=== PATIENT | female | born 1980 | race Caucasian/White ===

== ENCOUNTER → 2023-03-07 10:07 | Outpatient (CLI) | payer BC, SELFPAY ==
--- NOTE | ~2023-03-07 | US_ITS ---
Pelvic ultrasound. Clinical History: Hypertrophy of uterus Technique: Realtime transabdominal and transvaginal scanning of the pelvis was performed. Color flow Doppler and Doppler spectral analysis were performed. Findings: The uterus is anteverted, and measures 14.1 x 6.6 x 7.5 cm. The endometrial stripe has a t hickness of 8 mm. There is a probable posterior intramural fibroid measuring 5.3 x 4.0 x 5.3 cm. Juan tional posterior wall fibroid measuring 6.6 x 5.7 x 6.9 cm. Additional smaller fibroids are probably present. The right ovary measures 2.9 x 1.5 x 2.8 cm. No significant right ovarian or adnexal mass is seen. The left ovary measures 2.1 x 3.1 x 2.3 cm. No significant left ovarian or adnexal mass is seen. There is no evidence of free fluid in the cul de sac. Impression: Multifibroid uterus, as detailed above. Reviewed, dictated and finalized at location M. Impression: Multifibroid uterus, as detailed above.
== END ==
PROVIDERS: PCP Obstetrics & Gynecology Gynecology; Visit Provider Obstetrics & Gynecology Gynecology
DX: N85.2 Hypertrophy of uterus (principal); D25.9 Leiomyoma of uterus, unspecified
CPT/HCPCS: 76830; 76856

== ENCOUNTER 2023-04-23 07:59 | Outpatient (CLI) | payer BC, SELFPAY ==
[2023-04-23 08:28] LABS: Anion Gap 10 mmol/L (8-16); Blood Urea Nitrogen 18 mg/dL (7-17); Calcium 8.7 mg/dL (8.4-10.2); Carbon Dioxide 26 mmol/L (22-30); Chloride 105 mmol/L (98-107); Estimated Glomerular Filt Rate > 60; Glucose 107 mg/dL (65-110); Potassium 4.6 mmol/L (3.4-5.0); Sodium 141 mmol/L (137-145)
== END 2023-04-23 08:00 | disposition home or self-care (01) ==
LOC: ANHSURGERY 08:06
PROVIDERS: Anesthesiology; PCP Family Medicine; Visit Provider Obstetrics & Gynecology Gynecology
DX: Z79.899 Other long term (current) drug therapy (principal); Z01.818 Encounter for other preprocedural examination
CPT/HCPCS: 36415; 80048

== ENCOUNTER 2023-04-28 01:02 | Day surgery (SDC) | payer BC, SELFPAY ==
[2023-04-21 10:21] VITALS: BMI 34.7
--- NOTE | 2023-04-21 10:22 | PC.NURSE ---
Report to the Outpatient Waiting Room, entrance under the green pavilion located off [facility], at time _0730_ on date _[id number]_. Planned Procedure Time: _0930_. Time changes happen often and if your time is changed the preop area will call you the afternoon before. - You and your visitor will be asked to self-screen and do not enter if you have any COVID symptoms. - A mask is optional within the hospital at this time. Patients may have clear liquids (water, carbonated beverages, clear teas, apple juice) until 3 hours prior to surgery with a maximum of 20 ounces. - No food from midnight until time of surgery Take the following medications with a SIP of water the morning of surgery: Metoprolol DO NOT STOP ANY OF YOUR OTHER PRESCRIPTION MEDICATIONS PRIOR TO SURGERY ?EXCEPT THE FOLLOWING Medications to discontinue per physician None Date to take last dose Please no make-up, nail french, hairspray, perfume, deodorant, or body powder the day of surgery. No jewelry (including any body piercings) or valuables the day of surgery, leave them at home. Please take a shower or bath the night before, or the morning of, surgery with an antibacterial soap. Wear comfortable, loose fitting clothing. - Jewelry must be removed prior to entering the operating room. Rings and piercings that are not removed may be cut off. - The hospital will not accept responsibility for valuables. - Please leave all valuables, including medications, at home the day of surgery. If you are going home after surgery, a licensed salesperson driver must drive you home. - NO public transportation without another adult if you receive anesthesia. - We recommend that an adult stay with you for 24 hours following discharge. - We also recommend that you do not drive, make important decision, drink alcoholic beverages, or take any drugs that were not prescribed by your health care provider for at least 24 hours after your discharge time. Follow any additional instructions given to you from your surgeon. If you or anyone in your household have experienced Covid symptoms in the past week, please notify your surgeon or the nurse liaison at the phone number below for possible testing. Telephone instructions given to _Patient__and asked if any additional questions and then verbalized understanding. Patient advised to call surgeon office or pre surgery nurse liaison [phone] if any additional questions.
--- NOTE | 2023-04-28 07:33 | WPDHPUPDATE1 ---
History and Physical Update Update Date/Time: 04/28/23 07:33 History and Physical has been reviewed, including an updated exam of the patient. There are NO changes in the patient's condition. Risks, benefits, and alternatives have been discussed and questions answered. Patient agrees to proceed with procedure.
--- NOTE | 2023-04-28 07:33 | PM.HPGS ---
History of Present Illness History of Present Illness Consent: Risks, benefits, and alternatives have been discussed and questions answered. Patient agrees to proceed with procedure. Chief complaint: menorrhagia Narrative: Lashonda Irving is a 42 year old female with worsening cycles over the past year. Pelvic ultrasound revealed a posterior intramural fibroid as well as a subserosal fibroid and smaller fibroids. None are specifically listed as submucosal. It was recommended to proceed with D&C hysteroscopy and possible myomectomy. Risks of infection, bleeding, perforation, and fluid imbalance are reviewed. The possible pathology was discussed. Patient voices understanding and agrees to proceed. Review of Systems Review of Systems: not repeated day of surgery; patient states no changes in status PMFSH Past Medical History Medical History (Updated 04/28/23 @ 07:37 by Alicia Ramos MD) HTN (hypertension) Surgical History Surgical History (Updated 04/28/23 @ 07:35 by Alicia Ramos MD) History of foot surgery 2000 and 2001 Family History Family History Mother Family history of obesity Grandparent Family history of chronic obstructive pulmonary disease Family history of lung cancer Family history of congestive heart failure Diabetes mellitus Mother Hypertension Grandparent Family history of malignant neoplasm of brain Diabetes mellitus Social History Social History Smoking status: Never smoker Alcohol intake: current Drinks per week: 4 Substance use: never Substance use type: does not use Living arrangements: with family Occupation/Education: occupation Spiritual care concerns: No Meds Home Medications and Allergies Home Medications Medication Instructions Recorded Confirmed Type benazepril 20 1 tablet PO DAILY #90 tabs 08/15/22 04/21/23 Rx mg-hydrochlorothiazide 12.5 mg tablet metoprolol succinate 50 mg 50 mg PO DAILY #90 ea 08/15/22 04/21/23 Rx tablet,extended release 24 hr Allergies Allergy/AdvReac Type Severity Reaction Status Date / Time No Known Allergies Allergy Verified 04/21/23 10:15 Exam Narrative: BMI is 35.5 Const: General: healthy appearing and alert Orientation/consciousness: patient oriented x3 Resp: Effort & Inspection: normal respiratory effort GI: GI Palp: Yes Soft to palpation, No Tenderness to palpation present (GI) and No Palpable mass present : External Female Exam: normal external appearance Speculum Exam - Vagina: normal appearance of the vagina and normal vaginal discharge Speculum Exam - Cervix: normal appearance of the cervix Bimanual exam- vagina & uterus: consistency normal and enlarged (Approximately 15 week size) Bimanual Exam- Adnexa, other: normal adnexae and No adnexal tenderness Neuro: General: patient oriented x3 Assessment and Plan Assessment and plan (1) Menorrhagia: Code(s): N92.0 - Excessive and frequent menstruation with regular cycle Status: Acute Assessment and Plan: Plan to proceed with D&C hysteroscopy with possible myomectomy (2) Fibroid uterus: Code(s): D25.9 - Leiomyoma of uterus, unspecified Status: Acute
[2023-04-28 09:00] VITALS: BP 147/84; PULSE 99; RESP 18; TEMP 36.7; O2SAT 100
[2023-04-28] MEDS: LACTATED RINGERS 1,000 ML 30 ML IV CONT (09:00)
[2023-04-28] MEDS: ACETAMINOPHEN 500 MG TABLET 1000 MG PO (09:30)
--- NOTE | 2023-04-28 09:36 | WPDANESEPPF ---
Anes - Initial Pre Proc Eval Procedure: Operation Date: 04/28/23 10:30 Proposed Procedures p Hysteroscopy Dilation and Curettage - Alicia Ramos MD Date/Time: 04/28/23 09:36 Surgeon: Alicia Ramos MD Pre Op Diagnosis: menorrhagia Patient Data Age: 42 Gender: F Height: 1.78 m Weight: 110 kg Allergies Allergy/AdvReac Type Severity Reaction Status Date / Time No Known Allergies Allergy Verified 04/21/23 10:15 Home Medications Medication Instructions Recorded Confirmed Type benazepril 20 1 tablet PO DAILY #90 tabs 08/15/22 04/21/23 Rx mg-hydrochlorothiazide 12.5 mg tablet metoprolol succinate 50 mg 50 mg PO DAILY #90 ea 08/15/22 04/21/23 Rx tablet,extended release 24 hr Patient hx anesthesia problems: none Family hx anesthesia problems: none Results Review: All pre-operative results and documents have been reviewed as part of the pre-operative evaluation. [facility] Past Medical History Medical History HTN (hypertension) Surgical History Surgical History History of foot surgery 2000 and 2001 Family History Family History Mother Family history of obesity Grandparent Family history of chronic obstructive pulmonary disease Family history of lung cancer Family history of congestive heart failure Diabetes mellitus Mother Hypertension Grandparent Family history of malignant neoplasm of brain Diabetes mellitus Social History Social History Smoking status: Never smoker Alcohol intake: current Drinks per week: 4 Substance use: never Substance use type: does not use Living arrangements: with family Occupation/Education: occupation Spiritual care concerns: No Anes - Eval Final PreProcedure Day of Procedure 04/28/23 09:36 Patient weight: obese Heart: regular rate and rhythm Lungs: clear to auscultation Airway: Mallampati scale class II Neurological: alert and oriented Last oral intake: >/= 8 hours ASA classification: II Emergent: no Anesthetic plan: proceed Anesthesia type and monitoring: general GIVS and standard monitoring Results Review: All pre-operative results and documents have been reviewed as part of the pre-operative evaluation. Informed Consent: The patient's anesthetic plan and its attendant risks and benefits were discussed with the patient/family/POA. Questions were solicited and answers provided to the satisfaction of the patient/family/POA.
[2023-04-28] MEDS: KETOROLAC 30 MG/ML VIAL (*BKC) IV PUSH (10:43)
[2023-04-28 10:45] VITALS: BP 115/71; PULSE 77; RESP 16; O2SAT 95
--- NOTE | 2023-04-28 10:47 | W.PM.PROC2 ---
Procedure Note - Detailed Date of Procedure 04/28/23 Pre-op Diagnosis menorrhagia Post-op Diagnosis Same Procedure Performed D&C hysteroscopy Surgeon Alicia Ramos MD Anesthesia MAC Findings Uterus sounds to 12cm. There is sessile fibroid arising from the posterior filling the majority of the cavity. The remainder of the endometrium appears atrophic. Description of Procedure The patient is taken to the operating room and placed under anesthesia in the dorsal lithotomy position. She was prepped and draped in usual sterile fashion. [place] speculum was placed in the vagina and the cervix grasped on the anterior lip with a tenaculum. The uterine sound is unable to pass therefore the small Hegar dilators used and is able to enter the cavity. The cervix is dilated to a 4 Hegar. The uterine sound then placed and the uterus sounded to 12cm. The hysteroscope was placed and with the above-stated findings the medium resection device is opened and placed. Upon starting with resection of the right upper portion of the fibroid, there is intermediate fluid deficit of 300cc. Visualization went to minimal. While troubleshooting the total fluid deficit went to of 750cc. The hysteroscope was removed. The sound is replaced and no perforation is detected. It is assumed that the fluid is resorbed through the fibroid vasculature. The sharp curette is used to curette the endometrium. All instruments are removed. The patient was awakened from anesthesia and taken to recovery in stable condition. Estimated Blood Loss 5 Drains No Packing No Pathology Yes (Endometrial shavings and curettings) Complications No immediate complications Condition Stable Disposition PACU
[2023-04-28 11:15] VITALS: BP 117/67; PULSE 55
== END 2023-04-28 11:35 | disposition home or self-care (01) ==
PROVIDERS: PCP Family Medicine; Visit Provider Obstetrics & Gynecology Gynecology
PROC: 0U5B8ZZ Destruction of Endometrium, Via Natural or Artificial Opening Endoscopic (ICD-10-PCS; CPT 58563; principal; 2023-04-28 10:30)
DX: N92.0 Excessive and frequent menstruation with regular cycle (principal); D25.9 Leiomyoma of uterus, unspecified; I10 Essential (primary) hypertension; E66.9 Obesity, unspecified; Z68.34 Body mass index [BMI] 34.0-34.9, adult
CPT/HCPCS: 58558; 36415; 80048; 88305; A9270; J1100; J1885; J2250; J2405; J2704; J3010; J7120

== ENCOUNTER → 2023-05-13 10:29 | Outpatient (CLI) | payer BC, SELFPAY ==
--- NOTE | ~2023-05-13 | MM_ITS ---
EXAMINATION: MM screening sam BI w samantha HISTORY: Screening TECHNIQUE: Craniocaudal and mediolateral oblique 3-D tomosynthesis images were obtained and synthetic 2-D images were generated. CAD analysis was submitted and interpreted. COMPARISON: No prior mammogram is available for comparison at this institution. BREAST PARENCHYMAL COMPOSITION: There are scattered areas of fibroglandular density. FINDINGS: There is no evidence of suspicious mass, calcification, or architectural distortion to sugg est malignancy in either breast. There has been no suspicious interval change. IMPRESSION: 1. No mammographic evidence of malignancy. 2. Recommend routine screening mammography in one year. BI-RADS Category 1: Negative Reviewed, dictated and finalized at location A.
== END ==
PROVIDERS: PCP Family Medicine; Visit Provider Advanced Practice Midwife
DX: Z12.31 Encounter for screening mammogram for malignant neoplasm of breast (principal)
CPT/HCPCS: 77063; 77067

== ENCOUNTER 2023-05-16 08:22 | Outpatient (CLI) | payer BC, SELFPAY ==
--- NOTE | 2023-05-16 08:43 | ECG_ITS ---
Measurements Intervals [place] Rate: 93 P: -12 UT: 157 QRS: 24 QRSD: 94 T: 0 QT: 356 QTc: 443 Interpretive Statements SINUS RHYTHM NO PREVIOUS ECG AVAILABLE FOR COMPARISON Electronically Signed On 05-16-2023 13:34:35 CDT by Gorge Peralta MD
[2023-05-16 09:01] LABS: Hematocrit 31.2 % (37.0-47.0); Hemoglobin 8.9 g/dL (12.0-15.0)
== END 2023-05-16 08:23 | disposition home or self-care (01) ==
LOC: ANHSURGERY 08:25
PROVIDERS: PCP Family Medicine; Visit Provider Obstetrics & Gynecology Gynecology
DX: Z01.818 Encounter for other preprocedural examination (principal); I10 Essential (primary) hypertension; N92.0 Excessive and frequent menstruation with regular cycle
CPT/HCPCS: 36415; 85014; 85018; 86850; 86900; 86901; 93005

== ENCOUNTER 2023-05-26 10:20 | Inpatient (IN) | payer BC, SELFPAY ==
[2023-05-14 13:11] VITALS: BMI 34.7
--- NOTE | 2023-05-14 13:13 | PC.NURSE ---
Report to the Outpatient Waiting Room, entrance under the green pavilion located off [facility], at time 7:30 on date 05/26/23. Planned Procedure Time: 9:30. Time changes happen often and if your time is changed the preop area will call you the afternoon before. - You and your visitor will be asked to self-screen and do not enter if you have any COVID symptoms. - A mask is optional within the hospital at this time. Patients may have clear liquids (water, carbonated beverages, clear teas, apple juice) until 3 hours prior to surgery (6:30) with a maximum of 20 ounces. - No food from midnight until time of surgery Take the following medications with a SIP of water the morning of surgery: METOPROLOL DO NOT STOP ANY OF YOUR OTHER PRESCRIPTION MEDICATIONS PRIOR TO SURGERY ?EXCEPT THE FOLLOWING Medications to discontinue per physician: N/A Date to take last dose: N/A Please no make-up, nail honduran, hairspray, perfume, deodorant, or body powder the day of surgery. No jewelry (including any body piercings) or valuables the day of surgery, leave them at home. Please take a shower or bath the night before, or the morning of, surgery with an antibacterial soap. Wear comfortable, loose fitting clothing. - Jewelry must be removed prior to entering the operating room. Rings and piercings that are not removed may be cut off. - The hospital will not accept responsibility for valuables. - Please leave all valuables, including medications, at home the day of surgery. If you are going home after surgery, a licensed customer service driver must drive you home. - NO public transportation without another adult if you receive anesthesia. - We recommend that an adult stay with you for 24 hours following discharge. - We also recommend that you do not drive, make important decision, drink alcoholic beverages, or take any drugs that were not prescribed by your health care provider for at least 24 hours after your discharge time. Follow any additional instructions given to you from your surgeon. If you or anyone in your household have experienced Covid symptoms in the past week, please notify your surgeon or the nurse liaison at the phone number below for possible testing. Telephone instructions given to PT - SURYA HAYWARD and asked if any additional questions and then verbalized understanding. Patient advised to call surgeon office or pre surgery nurse liaison [phone] if any additional questions.
[2023-05-26] VITALS (20 sets, daily range): BP systolic 108–133; BP diastolic 58–85; PULSE 64–89; RESP 10–20; TEMP 36.1–37.3; O2SAT 94–100
[2023-05-26] MEDS: ACETAMINOPHEN 500 MG TABLET 1000 MG PO (06:38)
[2023-05-26] MEDS: LACTATED RINGERS 1,000 ML 30 ML IV CONT ×2 (06:50→09:17)
--- NOTE | 2023-05-26 06:52 | P.PNAN_ITS ---
Anes - Initial Pre Proc Eval Procedure: Operation Date: 05/26/23 07:30 Proposed Procedures p Total Abdominal Hysterectomy with Bilateral Salpingectomy - Alicia Ramos MD Date/Time: 05/26/23 06:52 Surgeon: Alicia Ramos MD Pre Op Diagnosis: menorrhagia, fibroids Patient Data Age: 42 Gender: F Height: 1.78 m Weight: 109.7 kg Allergies Allergy/AdvReac Type Severity Reaction Status Date / Time No Known Allergies Allergy Verified 05/26/23 06:36 Home Medications Medication Instructions Recorded Confirmed Type benazepril 20 1 tablet PO DAILY #90 tabs 05/11/23 05/26/23 Rx mg-hydrochlorothiazide 12.5 mg tablet metoprolol succinate 50 mg 50 mg PO DAILY #90 ea 05/11/23 05/26/23 Rx tablet,extended release 24 hr Patient hx anesthesia problems: none Family hx anesthesia problems: none Results Review: All pre-operative results and documents have been reviewed as part of the pre- operative evaluation. [facility] Past Medical History Medical History HTN (hypertension) Surgical History Surgical History History of foot surgery 2000 and 2001 Family History Family History Mother Family history of obesity Grandparent Family history of chronic obstructive pulmonary disease Family history of lung cancer Family history of congestive heart failure Diabetes mellitus Mother Hypertension Grandparent Family history of malignant neoplasm of brain Diabetes mellitus Social History Social History Smoking status: Never smoker Alcohol intake: current Drinks per week: 4 Substance use: never Substance use type: does not use Living arrangements: with family Occupation/Education: occupation Spiritual care concerns: No Anes - Eval Final PreProcedure Day of Procedure 05/26/23 06:52 Patient weight: obese Heart: regular rate and rhythm Lungs: clear to auscultation Airway: Mallampati scale class II Neurological: alert and oriented Last oral intake: >/= 8 hours ASA classification: II Emergent: no Anesthetic plan: proceed Anesthesia type and monitoring: general ETT and standard monitoring Results Review: All pre-operative results and documents have been reviewed as part of the pre- operative evaluation. Informed Consent: The patient's anesthetic plan and its attendant risks and benefits were discussed with the patient/family/POA. Questions were solicited and answers provided to the satisfaction of the patient/family/POA.
[2023-05-26] MEDS: KETOROLAC 15 MG/ML VIAL (*BKC) IV PUSH (07:00)
--- NOTE | 2023-05-26 07:05 | WPDHPUPDATE1 ---
History and Physical Update Update Date/Time: 05/26/23 07:05 History and Physical has been reviewed, including an updated exam of the patient. There are NO changes in the patient's condition. Risks, benefits, and alternatives have been discussed and questions answered. Patient agrees to proceed with procedure.
--- NOTE | 2023-05-26 07:05 | PM.IMHP ---
H&P: HPI History of Present Illness Date/Time: 05/26/23 07:05 Chief Complaint: Menorrhagia and enlarged fibroid uterus Narrative: The patient is a 42-year-old with worsening heavy cycles. Patient underwent D&C hysteroscopy and there is a large sessile fibroid filling the majority of the cavity. Uterus is enlarged with multiple fibroids. Patient has elected to proceed with total abdominal hysterectomy as well as bilateral salpingectomy. Risks of infection, bleeding, injury to internal organs (bowel, bladder, ureters, ovaries), DVT, and general anesthesia are reviewed. Patient voices understanding and agrees to proceed. Review of Systems Review of Systems: not repeated day of surgery; patient states no changes in status PMFSH Past Medical History Medical History HTN (hypertension) Surgical History Surgical History (Updated 05/26/23 @ 07:08 by Alicia Ramos MD) History of foot surgery 2000 and 2001 History of hysteroscopy Family History Family History Mother Family history of obesity Grandparent Family history of chronic obstructive pulmonary disease Family history of lung cancer Family history of congestive heart failure Diabetes mellitus Mother Hypertension Grandparent Family history of malignant neoplasm of brain Diabetes mellitus Social History Social History Smoking status: Never smoker Alcohol intake: current Drinks per week: 4 Substance use: never Substance use type: does not use Living arrangements: with family Occupation/Education: occupation Spiritual care concerns: No Meds Home Medications and Allergies Home Medications Medication Instructions Recorded Confirmed Type benazepril 20 1 tablet PO DAILY #90 tabs 05/11/23 05/26/23 Rx mg-hydrochlorothiazide 12.5 mg tablet metoprolol succinate 50 mg 50 mg PO DAILY #90 ea 05/11/23 05/26/23 Rx tablet,extended release 24 hr Allergies Allergy/AdvReac Type Severity Reaction Status Date / Time No Known Allergies Allergy Verified 05/26/23 06:36 Exam Const: General: healthy appearing and alert Orientation/consciousness: patient oriented x3 Resp: Effort & Inspection: normal respiratory effort GI: GI Palp: Yes Soft to palpation, No Tenderness to palpation present (GI) and No Palpable mass present : External Female Exam: normal external appearance Speculum Exam - Vagina: normal appearance of the vagina and normal vaginal discharge Speculum Exam - Cervix: normal appearance of the cervix Bimanual exam- vagina & uterus: enlarged (Approximately 15 week size) Bimanual Exam- Adnexa, other: normal adnexae and No adnexal tenderness Neuro: General: patient oriented x3 Assessment and Plan Assessment and plan (1) Fibroid uterus: Code(s): D25.9 - Leiomyoma of uterus, unspecified Status: Acute (2) Menorrhagia: Code(s): N92.0 - Excessive and frequent menstruation with regular cycle Status: Acute Assessment and Plan: Plan to proceed with total abdominal hysterectomy and bilateral salpingectomy
[2023-05-26] MEDS: ceFAZolin 2 GM/D5W 50 ML 2 GM/50 ML BAG IVPB (07:22)
--- NOTE | 2023-05-26 09:05 | P.OP_ITS ---
Procedure Note - Detailed Date of Procedure 05/26/23 Pre-op Diagnosis menorrhagia, fibroids Post-op Diagnosis Same Procedure Performed Total abdominal hysterectomy with right salpingectomy Surgeon Alicia Ramos MD Anesthesia General Findings Enlarged fibroid uterus, normal-appearing ovaries, left tube appears normal, right tube is scarred down to the pelvic sidewall Description of Procedure The patient is taken to the operating room and placed under anesthesia in the dorsal supine position. She was prepped and draped in the usual sterile fashion. Abdominal exam was performed and decision was made to proceed with a Pfannenstiel skin incision which was made with the scalpel. The incision was carried down to the fascia which was nicked in the midline and extended laterally using Ashton scissors. Bleeding vessels in the subcutaneous tissue are cauterized for hemostasis. The [facility] was used to tent the fascia which was then dissected off using sharp and blunt dissection. The rectus muscles were in the midline and the peritoneum tented entered with Metzenbaum scissors. The incision was extended with blunt traction. The bowel was packed away using moist laparotomy sponges and the [place] retractor was placed. The uterus is grasped on the cornu with large peans. The round ligaments were doubly ligated with 0 Vicryl, transected, and the anterior leaf of the broad ligament incised meeting in the midline. The bladder was dissected off the lower uterine segment and cervix with a moist sponge stick bluntly. The window was created in the posterior leaf of the broad ligament and the utero-ovarian ligament is doubly clamped with minimally curved Z clamps, transected, and suture ligated with 0 Vicryl on each side. The uterine vessels are skeletonized, doubly clamped with minimally curved Z clamps, transected, and suture ligated with 0 Vicryl. The cardinal and uterosacral ligaments are serially clamped, transected, and suture ligated with 0 Vicryl. The uterosacral ligaments are tagged for future use. A scalpel was used to enter the vaginal cuff anteriorly. The vaginal cuff was grasped with long Allis clamps and the specimen amputated using Jame scissors. The vaginal cuff was closed using 0 Vicryl in a running locked fashion tying each angle to the ipsilateral uterosacral ligaments. The posterior peritoneum dehisced from the cuff therefore it was closed and brought up to the vaginal cuff using a running stitch of 0 Vicryl. The pelvis was irrigated and noted to be hemostatic. The right tube is grasped with a Rene, crossclamped with a minimally curved Z clamp, excised, and suture ligated with 0 Vicryl. The left tube is noted to be very adherent to the left pelvic sidewall and deep under scar tissue therefore it was left in place. The pelvis was again irrigated and noted to be hemostatic. All tags were cut out. Sponges and instruments are removed. The fascia was closed using 0 Vicryl in a running fashion. Subcutaneous tissues are irrigated and made hemostatic using Bovie cautery. Skin incision was closed using 4-0 Vicryl in a subcuticular fashion. Dermaflex was placed over the incision. Once the Dermaflex is dry the Mepilex dressing is placed. Sponge, needle, and instrument counts are correct per the OR staff. Layne catheter has no blood noted. The patient is awakened from anesthesia and taken to recovery in stable condition. Estimated Blood Loss 125 Drains Yes (Layne catheter) Packing No Pathology Yes (Uterus and right tube) Complications No immediate complications Condition Stable Disposition PACU
--- NOTE | 2023-05-26 09:11 | PM.DS ---
DS: Admitting Diagnosis Discharge Date 05/28/23 Admitting Diagnosis Menorrhagia with fibroid uterus DS: Discharge Diagnosis Discharge Diagnosis (1) Status post total abdominal hysterectomy: Code(s): Z90.710 - Acquired absence of both cervix and uterus Status: Acute DS: Summary Hospital Course Hospital Course: The patient is tolerating a regular diet, voiding, and ambulating at the time of discharge. Status at Discharge Functional status at discharge: independent ambulation Overall status at discharge: patient is progressing back to baseline Time Spent with Patient Time attestation: Total time spent providing and/or coordinating discharge services: Time spent: Less than 30 minutes DS: Data Data Completed and Pending Pending studies at discharge: Pending at discharge 05/26/23 08:35 Surgical [PTH] Routine Surgical [PTH] Routine Discharge Plan Discharge Attending physician on discharge: Alicia Ramos Discharging Clinician: Alicia Ramos Anticipated Discharge Date/Time: 05/28/23 07:31 Patient Disposition: Home, Self-Care Activity: may shower, may drive after 2 weeks and pelvic rest Diet: regular Wound Care Instructions: keep dressing dry Stand Alone Forms: General Discharge Instructions Follow-up/Referrals: Alicia Ramos MD [Physician] - 1 Week (and 6 wk) Discharge Medications: New hydrocodone-acetaminophen 5-325 mg tablet 1 tablet PO Q4H PRN (Reason: pain) Qty: 10 0RF Continued benazepril-hydrochlorothiazide 20-12.5 mg tablet 1 tablet PO DAILY Qty: 90 1RF metoprolol succinate 50 mg tablet extended release 24 hr 50 mg PO DAILY Qty: 90 1RF Date of admission: 05/26/23 10:20 Primary Care Provider: Bib Shelley Admitting Provider: Alicia Ramos Attending physician on admission: Alicia Ramos Condition: Stable
[2023-05-26] MEDS: fentaNYL CITRATE INJ (*CRX) 100 MCG/2 ML VIAL 25 MCG IV PUSH ×3 (09:34→10:02)
[2023-05-26] MEDS: KETOROLAC 30 MG/ML VIAL (*BKC) IV PUSH (10:56)
[2023-05-26] MEDS: DEXTROSE 5%/LACTATED RINGERS 1,000 ML 125 ML IV CONT ×3 (10:56→23:11)
--- NOTE | 2023-05-26 11:10 | ADMGEN ---
1027-This patient, Lashonda Irving, was admitted to OB 2nd Floor Room 289-00. Patient/family oriented to hospital policies and general routines including ID bracelet, bed and alarms, visiting hours, pain management, procedures, bathroom and other care routines, personal items, smoking policy, room service/diet, and visiting hours. Information on how to activate the Rapid Response Team has been discussed. Patient/Family are encouraged to report perceived risks to care and to ask questions if they do not understand what they are told or what they should do.
[2023-05-26] MEDS: FENTANYL 600MCG/NS30MLPCA(*CRX 600 MCG/30 ML PCA.VIAL IV CONT (12:22)
[2023-05-27] VITALS (7 sets, daily range): BP systolic 109–125; BP diastolic 55–62; PULSE 70–82; RESP 16–18; TEMP 36.2–37.1; O2SAT 98
[2023-05-27] MEDS: KETOROLAC 30 MG/ML VIAL (*BKC) IV PUSH (04:39)
[2023-05-27] MEDS: HYDROcodone/acetaminophen (*CRX) 10-325 MG TABLET 1 TAB PO ×3 (04:40→11:42)
[2023-05-27] MEDS: SIMETHICONE 80 MG TAB.CHEW PO ×5 (04:40→17:45)
[2023-05-27 05:05] LABS: Basophils Percent Auto 0.2 % (0.2-1.2); Hematocrit 25.3 % (37.0-47.0); Hemoglobin 7.2 g/dL (12.0-15.0); Immature Granulocyte Absolute 0.06 K/mm3 (0.00-0.031); Immature Granulocyte Percent A 0.5 % (0-0.5); Lymphocytes Absolute Auto 1.49 K/mm3 (0.9-3.2); Lymphocytes Percent Auto 12.2 % (18.3-44.2); Mean Corpuscular HGB Conc 28.5 g/dl (32-36); Mean Corpuscular Hemoglobin 19.8 pg (26-34); Mean Corpuscular Volume 69.7 fl (80-100); Mean Platelet Volume 9.5 fl (7.4-10.4); Monocytes Percent Auto 8.1 % (2.6-8.5); Neutrophils Absolute Auto 9.6 K/mm3 (1.3-6.7); Platelet Count Result 354 k/mm3 (150-375); Red Blood Count 3.63 M/mm3 (4.2-5.4); Red Cell Distribution Width 19.3 % (11.5-14.5); White Blood Count 12.2 K/mm3 (4.5-10.0)
[2023-05-27 05:56] LABS: Platelet Estimate Adequate (Adequate)
[2023-05-27 05:57] LABS: Anisocytosis 2+ (NORMAL); Hypochromasia 2+ (NORMAL); Microcytosis 2+ (NORMAL); Schistocytes None Seen (NORMAL)
--- NOTE | 2023-05-27 07:51 | PM.GYNPNOP ---
BELLSTAFF - A/P Postoperative Procedures: Procedures Operation Date: 05/26/23 07:30 Actual Procedure Side Surgeon p Total Abdominal Hysterectomy with Right Salpingectomy Right Alicia Ramos MD Postoperative day: 1 Postoperative status: doing well Postoperative plan: routine post-op care Time Spent With Patient Time: Total time spent is greater than 50% in coordination of care (as documented) at patient's floor/unit and/or counseling patient: Time with patient: less than 15 minutes BELLSTAFF- PN:Subj Post-Op Subjective Date/time seen: 05/27/23 07:51 Subjective: patient reports feeling better, patient has no complaints and pain is well controlled Exam Narrative: bandage intact abdomen soft, nt BELLSTAFF - PN: Obj Data Vital Signs Vital Signs: Vital Signs - 24 hr 05/26/23 09:17 05/26/23 09:30 05/26/23 09:45 Temperature 97.2 F L Pulse Rate 79 64 67 Respiratory Rate 10 L 18 16 Blood Pressure 108/68 111/70 114/71 Pulse Oximetry 100 100 100 Oxygen Delivery Simple Face Mask Simple Face Mask Simple Face Mask Oxygen Flow Rate 6 6 6 05/26/23 09:50 05/26/23 10:00 05/26/23 10:15 Temperature 96.9 F L Pulse Rate 71 66 Respiratory Rate 16 16 Blood Pressure 122/71 114/72 Pulse Oximetry 97 94 Oxygen Delivery Room Air Room Air Room Air Oxygen Flow Rate 05/26/23 11:00 05/26/23 12:22 05/26/23 10:35 Temperature 97.6 F Pulse Rate 66 73 Respiratory Rate 16 16 16 Blood Pressure 120/66 Pulse Oximetry 94 97 97 Oxygen Delivery Room Air Oxygen Flow Rate 05/26/23 13:22 05/26/23 14:22 05/26/23 15:14 Temperature 98.6 F Pulse Rate 73 Respiratory Rate 16 16 16 Blood Pressure 128/68 Pulse Oximetry 97 98 98 Oxygen Delivery Oxygen Flow Rate 05/26/23 15:00 05/26/23 15:22 05/26/23 19:15 Temperature 98 F Pulse Rate 73 81 Respiratory Rate 16 16 16 Blood Pressure 113/58 L Pulse Oximetry 98 98 98 Oxygen Delivery Room Air Oxygen Flow Rate 05/26/23 19:15 05/26/23 21:18 05/26/23 21:21 Temperature 98 F Pulse Rate 81 Respiratory Rate 16 18 18 Blood Pressure 122/62 Pulse Oximetry 98 97 97 Oxygen Delivery Oxygen Flow Rate 05/26/23 23:20 05/26/23 23:31 05/26/23 23:31 Temperature 99.1 F Pulse Rate 89 89 Respiratory Rate 18 18 18 Blood Pressure 124/68 Pulse Oximetry 98 98 98 Oxygen Delivery Room Air Oxygen Flow Rate 05/27/23 01:05 05/27/23 03:21 05/27/23 03:23 Temperature 98.8 F Pulse Rate 78 Respiratory Rate 18 18 18 Blood Pressure 125/62 Pulse Oximetry 98 98 98 Oxygen Delivery Oxygen Flow Rate 05/27/23 03:23 05/27/23 04:30 05/27/23 07:00 Temperature Pulse Rate 78 Respiratory Rate 18 18 Blood Pressure Pulse Oximetry 98 98 Oxygen Delivery Room Air Room Air Oxygen Flow Rate 05/26/23 10:27 Temperature 96.9 F L Pulse Rate 66 Respiratory Rate Blood Pressure 114/72 Pulse Oximetry 94 Oxygen Delivery Oxygen Flow Rate Intake/Output Intake/Output: Intake & Output 05/24/23 05/25/23 05/26/23 05/27/23 23:59 23:59 23:59 23:59 Intake Total 4203.5 2339 Output Total 505 3500 Balance 3698.5 -1161 Meds/Results Medications: Active Medications Generic Name Dose Route Start Last Admin Trade Name Freq PRN Reason Stop Dose Admin Hydrocodone Bitart/Acetaminophen 1 tab 05/26/23 10:20 05/27/23 04:40 Hydrocodone/Acetaminophen (*Crx) 10-325 Mg Tablet PO 1 tab Q3H PRN Administration Pain Rated 6 or Greater Hydrocodone Bitart/Acetaminophen 1 tab 05/26/23 10:20 Hydrocodone/Acetaminophen (*Crx) 5-325 Mg Tablet PO Q3H PRN Pain Rated 5 or Less Hydrochlorothiazide 12.5 mg 05/27/23 09:00 Hydrochlorothiazide 12.5 Mg Capsule PO QAM NATALIE Dextrose/Lactated Ringer's 1,000 mls @ 125 mls/hr 05/26/23 10:20 05/27/23 04:30 Dextrose 5%/Lactated Ringers IV CONT 0 mls/hr .Q8H NATALIE Infusion Ibuprofen 600 mg 05/26/23 10:20 Ibuprofen 600 Mg Tabl
[2023-05-27] MEDS: METOPROLOL SUCCINATE EXT REL 50 MG TABCR PO (08:20)
[2023-05-27] MEDS: lisinopriL 20 MG TABLET PO (08:21)
[2023-05-27] MEDS: hydroCHLOROthiazide 12.5 MG CAPSULE PO (08:21)
[2023-05-27] MEDS: IBUPROFEN 600 MG TABLET PO ×2 (11:43→17:45)
[2023-05-27] MEDS: HYDROcodone/acetaminophen (*CRX) 5-325 MG TABLET 1 TAB PO ×2 (14:44→17:45)
[2023-05-28] MEDS: HYDROcodone/acetaminophen (*CRX) 5-325 MG TABLET 1 TAB PO ×2 (05:40→08:58)
[2023-05-28] MEDS: SIMETHICONE 80 MG TAB.CHEW PO ×2 (05:40→08:58)
[2023-05-28] MEDS: IBUPROFEN 600 MG TABLET PO (05:40)
--- NOTE | 2023-05-28 07:28 | PM.GYNPNOP ---
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 - A/P Postoperative Procedures: Procedures Operation Date: 05/26/23 07:30 Actual Procedure Side Surgeon p Total Abdominal Hysterectomy with Right Salpingectomy Right Alicia Ramos MD Postoperative day: 2 Postoperative status: doing well Postoperative plan: routine post-op care and discharge Time Spent With Patient Time: Total time spent is greater than 50% in coordination of care (as documented) at patient's floor/unit and/or counseling patient: Time with patient: less than 15 minutes 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- PN:Subj Post-Op Subjective Date/time seen: 05/28/23 07:28 Subjective: patient has no complaints and pain is well controlled (no pain meds needed overnight) Exam Narrative: inc c/d/i abdomen soft, nt 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 - PN: Obj Data Vital Signs Vital Signs: Vital Signs - 24 hr 05/27/23 08:20 05/27/23 08:10 05/27/23 19:45 Temperature 98.4 F 97.1 F L Pulse Rate 70 70 82 Respiratory Rate 16 16 Blood Pressure 122/59 L 109/55 L Pulse Oximetry 98 Intake/Output Intake/Output: Intake & Output 05/25/23 05/26/23 05/27/23 05/28/23 23:59 23:59 23:59 23:59 Intake Total 4203.5 2339 Output Total 505 3950 Balance 3698.5 -1611 Meds/Results Medications: Active Medications Generic Name Dose Route Start Last Admin Trade Name Freq PRN Reason Stop Dose Admin Hydrocodone Bitart/Acetaminophen 1 tab 05/26/23 10:20 05/27/23 11:42 Hydrocodone/Acetaminophen (*Crx) 10-325 Mg Tablet PO 1 tab Q3H PRN Administration Pain Rated 6 or Greater Hydrocodone Bitart/Acetaminophen 1 tab 05/26/23 10:20 05/28/23 05:40 Hydrocodone/Acetaminophen (*Crx) 5-325 Mg Tablet PO 1 tab Q3H PRN Administration Pain Rated 5 or Less Hydrochlorothiazide 12.5 mg 05/27/23 09:00 05/27/23 08:21 Hydrochlorothiazide 12.5 Mg Capsule PO 12.5 mg QAM NATALIE Administration Ibuprofen 600 mg 05/26/23 10:20 05/28/23 05:40 Ibuprofen 600 Mg Tablet PO 600 mg Q6H PRN Administration Cramping Ketorolac Tromethamine 30 mg 05/26/23 10:20 05/27/23 04:39 Ketorolac 30 Mg/Ml Vial (*Bk) IV PUSH 05/31/23 10:19 30 mg Q6H PRN Administration Pain Rated 4-6 Lisinopril 20 mg 05/27/23 09:00 05/27/23 08:21 Lisinopril 20 Mg Tablet PO 20 mg QAM NATALIE Administration Metoprolol Succinate 50 mg 05/27/23 09:00 05/27/23 08:20 Metoprolol Succinate Ext Rel 50 Mg Tabcr PO 50 mg DAILY NATALIE Administration Naloxone HCl 0.1 mg 05/26/23 10:20 Naloxone Hcl 0.4 Mg/Ml Vial IV PUSH Q2M PRN Respiratory rate less than 10 Ondansetron HCl 4 mg 05/26/23 10:20 Ondansetron Inj 4 Mg/2 Ml Vial IV PUSH Q6H PRN Nausea Simethicone 80 mg 05/26/23 10:20 05/28/23 05:40 Simethicone 80 Mg Tab.Chew PO 80 mg Q2H PRN Administration Gas Labs 05/27/23 04:47
[2023-05-28 08:55] VITALS: BP 123/78; PULSE 80; RESP 16; TEMP 36.7; O2SAT 99
[2023-05-28 08:58] VITALS: PULSE 80
[2023-05-28] MEDS: hydroCHLOROthiazide 12.5 MG CAPSULE PO (08:58)
[2023-05-28] MEDS: lisinopriL 20 MG TABLET PO (08:58)
[2023-05-28] MEDS: METOPROLOL SUCCINATE EXT REL 50 MG TABCR PO (08:58)
== END 2023-05-28 10:11 | disposition home or self-care (01) | DRG 743 ==
LOC: ANHOB2 10:25
PROVIDERS: Admitting Provider Obstetrics & Gynecology Gynecology; PCP Family Medicine; Visit Provider Obstetrics & Gynecology Gynecology
PROC: 0UT94ZZ Resection of Uterus, Percutaneous Endoscopic Approach (ICD-10-PCS; principal; 2023-05-26 07:30)
DX: D25.9 Leiomyoma of uterus, unspecified (principal); N92.0 Excessive and frequent menstruation with regular cycle; I10 Essential (primary) hypertension
CPT/HCPCS: 36415; 85014; 85018; 85025; 86850; 86900; 86901; 88307; 93005; A9270; J0690; J1100; J1170; J1885; J2250; J2405; J2704; J3010; J7120; J7121

== ENCOUNTER 2024-05-24 12:07 | Outpatient (CLI) | payer BC, SELFPAY ==
--- NOTE | ~2024-05-24 | MM_ITS ---
EXAMINATION: MM screening sam BI w samantha HISTORY: Screening mammogram TECHNIQUE: Craniocaudal and mediolateral oblique 3-D tomosynthesis images were obtained and synthetic 2-D images were generated. CAD analysis was submitted and interpreted. COMPARISON: 05/13/2023 BREAST PARENCHYMAL COMPOSITION:Not Dense. There are scattered areas of fibroglandular density. FINDINGS: No suspicious mass, calcification, or architectural distortion are identified in either conchis ast to suggest malignancy. There has been no suspicious interval change. IMPRESSION: No mammographic evidence of malignancy. Recommend routine screening mammography in one year. BI-RADS Category 1: Negative Reviewed, dictated and finalized at location .
== END 2024-05-24 12:08 | disposition home or self-care (01) ==
LOC: MICIMG 12:07
PROVIDERS: PCP Family Medicine; Visit Provider Obstetrics & Gynecology Gynecology
DX: Z12.31 Encounter for screening mammogram for malignant neoplasm of breast (principal)
CPT/HCPCS: 77063; 77067

== ENCOUNTER 2025-05-26 12:17 | Outpatient (CLI) | payer BC, SELFPAY ==
--- NOTE | ~2025-05-26 | MM_ITS ---
EXAMINATION: MM screening sam BI w samantha HISTORY: Screening TECHNIQUE: Craniocaudal and mediolateral oblique 3-D tomosynthesis images were obtained and synthetic 2-D images were generated. CAD analysis was submitted and interpreted. COMPARISON: Comparison to multiple prior studies sequentially, with oldest reviewed study dated 05/13/2023. BREAST PARENCHYMAL COMPOSITION: Not Dense: The breasts are almost entirely fatty. FINDINGS: There is no evidence of suspicious mass, calcification, or architectural distortion to suggest malignancy in either breast. There has been no suspicious interval change. IMPRESSION: 1. No mammographic evidence of malignancy. 2. Recommend routine screening mammography in one year. BI-RADS Category 1: Negative Reviewed, dictated and finalized at location B.
== END 2025-05-26 12:18 | disposition home or self-care (01) ==
LOC: MICIMG 12:18
PROVIDERS: PCP Family Medicine
DX: Z12.31 Encounter for screening mammogram for malignant neoplasm of breast (principal)
CPT/HCPCS: 77063; 77067